=== PATIENT | male | born 1965 | race Caucasian/White ===

== ENCOUNTER 2018-12-18 15:27 | Emergency (ER) | payer OTHER ==
[2018-12-18 15:38] VITALS: BP 154/94; PULSE 98; TEMP 97.9; BMI 34.7
--- NOTE | 2018-12-18 16:48 | PDOC ---
History of Present Illness - History of Present Illness Initial Comments: This patient is a 53 year old male, with no significant PMHx, who presents with 5 days of left flank pain. Patient states that his left flank pain began 5 days ago, denies inciting event, describes his pain as sharp, worse with breathing. 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 But he denies any heavy lifting during initial onset of pain. He states that the pain is making it difficult for him to sleep. He states that he last took 400 mg Advil at 8 am. He also endorses pain upon urination a couple of days ago as well as some dizziness. He denies loss of bladder or bowel function, numbness & tingling in groin, hematuria. 12/18/18 16:58 <Jada Stephens - Last Filed: 12/18/18 17:17> <Roxanne Alvarenga - Last Filed: 12/21/18 17:03> - General Chief Complaint: Back Pain Stated Complaint: LWR BACK PAIN / Q 5 DAYS Time Seen by Provider: 12/18/18 16:13 Past History <Jada Stephens - Last Filed: 12/18/18 17:17> - Travel Traveled outside of the country in the last 30 days: No Close contact w/someone who was outside of country & ill: No - Past Medical History COPD: No - Immunization History Immunization Up to Date: Yes - Suicide/Smoking/Psychosocial Hx Smoking Status: No Smoking History: Never smoked Number of Cigarettes Smoked Daily: 0 Hx Alcohol Use: No Drug/Substance Use Hx: No <Roxanne Alvarenga - Last Filed: 12/21/18 17:03> - Past Medical History Allergies/Adverse Reactions: Allergies Allergy/AdvReac Type Severity Reaction Status Date / Time No Known Allergies Allergy Verified 12/18/18 15:35 Home Medications: Ambulatory Orders No Home Medications 0 dose .ROUTE UTDICT 08/14/13 traMADol HCL [Ultram -] 50 mg PO Q8H #12 tablet MDD 3 12/18/18 Review of Systems - Review of Systems Comments:: GENERAL/CONSTITUTIONAL: No fever or chills. No weakness. HEAD, EYES, EARS, NOSE AND THROAT: No change in vision. No ear pain or discharge. No sore throat. CARDIOVASCULAR: No chest pain or shortness of breath. RESPIRATORY: No cough, wheezing, or hemoptysis. GASTROINTESTINAL: No nausea, vomiting, diarrhea or constipation. GENITOURINARY: +dysuria, no frequency, or other change in urination. MUSCULOSKELETAL: +left flank pain. No joint or muscle swelling. No neck pain. SKIN: No rash NEUROLOGIC: +dizziness.No headache, loss of consciousness, or change in strength /sensation. ENDOCRINE: No increased thirst. No abnormal weight change. HEMATOLOGIC/LYMPHATIC: No anemia, easy bleeding, or history of blood clots. ALLERGIC/IMMUNOLOGIC: No hives or skin allergy. 12/18/18 16:59 <Jada Stephens - Last Filed: 12/18/18 17:17> *Physical Exam - Vital Signs Last Vital Signs Temp Pulse Resp BP Pulse Ox 97.9 F 98 H 17 154/94 98 12/18/18 15:35 12/18/18 15:35 12/18/18 15:35 12/18/18 15:35 12/18/18 15:35 - Physical Exam Comments: GENERAL: Awake, alert, and fully oriented, in no acute distress HEAD: No signs of trauma EYES: PERRLA, EOMI, sclera anicteric, conjunctiva clear NECK: Normal ROM, supple, no lymphadenopathy, JVD, or masses ABDOMEN: Soft, nontender, normoactive bowel sounds. No guarding, no rebound. No masses BACK: Left flank tenderness to palpation. No CVA or midline tenderness. Strength equal bilaterally. EXTREMITIES: Normal range of motion, no edema. No clubbing or cyanosis. No cords, erythema, or tenderness NEUROLOGICAL: Cranial nerves II through XII grossly intact. Normal speech, normal gait SKIN: Warm, Dry, normal turgor, no rashes or lesions noted. <Jada Stephens - Last Filed: 12/18/18 17:17> - Vital Signs Last Vital Signs Temp Pulse Resp BP Pulse Ox 97.9 F 98 H 17 154/94 98 12/18/18 15:35 12/18/18 15:35 12/18/18 15:35 12/18/18 15:35 12/18/18 15:35 <Roxanne Alvarenga - Last Filed: 12/21/18 17:03> Moderate Sedation - Procedure Monitoring Vital Signs: Procedure Monitoring Vital Signs Temperature 97.9 F 12/18/18 15:35 Pulse Rate 98 H 12/18/18 15:35 Respiratory Rate 17 12/18/18 15:35 Blood Pressure 154/94 12/18/18 15:35 O2 Sat by Pulse Oximetry (%) 98 12/18/18 15:35 <Jada Stephens - Last Filed: 12/18/18 17:17> - Procedure Monitoring Vital Signs: Procedure Monitoring Vital Signs Temperature 97.9 F 12/18/18 15:35 Pulse Rate 98 H 12/18/18 15:35 Respiratory Rate 17 12/18/18 15:35 Blood Pressure 154/94 12/18/18 15:35 O2 Sat by Pulse Oximetry (%) 98 12/18/18 15:35 <Roxanne Alvarenga - Last Filed: 12/21/18 17:03> ED Treatment Course - LABORATORY CBC & Chemistry Diagram: 12/18/18 16:50 12/18/18 16:50 <Jada Stephens - Last Filed: 12/18/18 17:17> - LABORATORY CBC & Chemistry Diagram: 12/18/18 16:50 12/18/18 16:50 <Roxanne Alvarenga - Last Filed: 12/21/18 17:03> Medical Decision Making - Medical Decision Making 12/18/18 16:45 A portion of this note was documented by scribe services under my direction. I have reviewed the details of the note, within reason, and agree with the documentation with the following case summary and management plan written by me. A: left-sided flank pain P: Basic labs, urine,CT spiral ordered to rule out stone. lab work is grossly normal, creatinine and BUN within normal limits. CT spiral shows no stones. Patient does have a hiatal hernia which he is aware of. suspect muscle spasm at this time given no stone. Pain control in the ED given patient reports relief of symptoms. Patient is neurologically intact with no focal findings Discharge home with PCP follow-up I discussed the physical exam findings, ancillary test results and final diagnoses with the patient. I answered all of the patient's questions. The patient was satisfied with the care received and felt comfortable with the discharge plan and treatment plan. The Patient agrees to follow up with the primary care physician/specialist within 24-72 hours. Return precautions were given. <Sciliano,Roxanne - Last Filed: 12/21/18 17:03> *DC/Admit/Observation/Transfer - Attestations Scribe Attestion: 12/18/18 17:06 Documentation prepared by Jada Stephens, acting as medical writer for Roxanne ADDISON Alvarenga <Jada Stephens - Last Filed: 12/18/18 17:17> - Discharge Dispostion Decision to Admit order: No <Roxanne Alvarenga - Last Filed: 12/21/18 17:03> Diagnosis at time of Disposition: Back pain Qualifiers: Back pain location: low back pain Chronicity: acute Back pain laterality: left Sciatica presence: without sciatica Qualified Code(s): M54.5 - Low back pain - Discharge Dispostion Disposition: HOME Condition at time of disposition: Stable - Prescriptions Prescriptions: traMADol HCL [Ultram -] 50 mg PO Q8H #12 tablet MDD 3 - Referrals Referrals: Sajan Purdy MD [Primary Care Provider] - Evan Aaron MD, [facility] [Staff Physician] - - Patient Instructions Printed Discharge Instructions: DI for Low Back Pain Additional Instructions: You have low back pain possibly due to a disc issue in the back. You do not have a kidney stone. Please take The tramadol as prescribed. You were also prescribed Flexeril. Please take this medication every 8 hours for the first day. Then take the medication before you go to bed. Do not drive after taking either medication as they may make you sleepy. You may use warm compresses on your back to help with her symptoms. Please follow-up with your primary care doctor. If your symptoms do not resolve in 3-5 days, follow-up with orthopedics. A referral has been provided for you. You have been provided a copy of your CAT scan report Return to the emergency department if you have worsening back pain, bladder or bowel incontinence, numbness and tingling in her legs, changes in the way you walk, or any new or worsening symptoms. Your kidney function was slightly elevated. Please follow up with your primary care doctor as well. - Post Discharge Activity Forms/Work/School Notes: Back to Work
[2018-12-18 17:14] LABS: URINE APPEARANCE Clear; URINE BILIRUBIN Negative (<2.0 mg/dL); URINE COLOR Yellow; URINE GLUCOSE (UA) Negative (NEGATIVE); URINE KETONE Negative (NEGATIVE); URINE LEUK ESTERASE Negative (NEGATIVE); URINE NITRITE Negative (NEGATIVE); URINE PROTEIN Negative (NEGATIVE); URINE UROBILINOGEN 0.2 mg/dL (0.2-1.0)
[2018-12-18 17:38] LABS: ALBUMIN 4.2 g/dl (3.4-5.0); ALK PHOS 149 U/L (45-117); ANION GAP 5 MMOL/L (8-16); BILIRUBIN,TOTAL 0.7 mg/dL (0.2-1); BLOOD UREA NITROGEN 19 mg/dL (7-18); CALCIUM 9.5 mg/dL (8.5-10.1); CHLORIDE 106 mmol/L (98-107); CO2 28 mmol/L (21-32); CREATININE 1.5 mg/dL (0.55-1.3); GLUCOSE,RANDOM 97 mg/dL (74-106); POTASSIUM 4.4 mmol/L (3.5-5.1); SGOT/AST 22 U/L (15-37); SGPT/ALT 42 U/L (13-61); SODIUM 138 mmol/L (136-145); TOT PROT 7.7 g/dl (6.4-8.2)
[2018-12-18] MEDS ORDERED: KETOROLAC TROMETHAMINE 60 MG/2 ML VIAL IM ONE (19:22)
[2018-12-18 19:32] LABS: BASO % 0.7 % (0-2.0); EOS % 1.8 % (0-4.5); HEMATOCRIT 46.8 % (35.4-49); LYMPH % 23.7 % (8-40); MCH 28.9 pg (25.7-33.7); MCHC 34.2 g/dl (32.0-35.9); MEAN CELL VOLUME 84.5 fl (80-96); MEAN PLT VOLUME 8.9 fl (7.5-11.1); MONO % 7.2 % (3.8-10.2); NEUT % 66.6 % (42.8-82.8); PLATELET COUNT 287 K/MM3 (134-434); RBC 5.54 M/mm3 (4.00-5.60); RDW 13.7 % (11.9-15.9); WHITE BLOOD COUNT 8.4 K/mm3 (4.0-10.0)
[2018-12-18] MEDS ORDERED: KETOROLAC TROMETHAMINE 60 MG/2 ML VIAL ONE (19:41)
== END 2018-12-18 21:00 | disposition home or self-care (01) ==
LOC: JERFT 15:27
PROC: 3E0233Z Introduction of Anti-inflammatory into Muscle, Percutaneous Approach (ICD-10-PCS; principal; 2018-12-18)
DX: M54.5 Low back pain (principal)
CPT/HCPCS: 36415; 74176-TC; 80053; 81003; 81015; 85025; 87086; 99281-25